=== PATIENT | male | born 1965 | race African-American/Black ===

== ENCOUNTER 2019-10-21 13:25 | Emergency (ER) | payer MEDICARE ==
[~2019-10-21] VITALS: Ht 177.8 cm; Wt 97.0 kg
[2019-10-21] MEDS ORDERED: KETOROLAC 60MG/2ML VIAL IM ONE (17:45)
[2019-10-21 17:58] VITALS: BP 136/86
== END 2019-10-21 17:59 | disposition home or self-care (01) ==
LOC: ER 13:25
DX: M54.12 Radiculopathy, cervical region (principal); I10 Essential (primary) hypertension
CPT/HCPCS: 96372; 99283; J1885